=== PATIENT | male | born 1995 | race Hispanic/Latino ===

== ENCOUNTER 2017-04-15 18:24 | Emergency (ER) | payer OTHER ==
[2017-04-15 18:34] VITALS: BP 146/91; PULSE 94; RESP 18; TEMP 98.5; O2SAT 97
[2017-04-15] MEDS ORDERED: Lidocaine 1% Inj (20ml) ONE (18:41)
--- NOTE | 2017-04-15 19:20 | ED PDOC ---
Lower Extremity Pain/Injury Time Seen by Provider: 04/15/17 18:36 Chief Complaint (Nursing): Lower Extremity Problem/Injury Chief Complaint (Provider): Left knee laceration History Per: Patient Onset/Duration Of Symptoms: Mins (prior to arrival) Current Symptoms Are (Timing): Still Present Additional Complaint(s): Robin Lazo is a 21 year old male who presents to the emergency department for an evaluation after he fell on stairs and hit his left knee on metal portion of steps prior causing laceration prior to arrival. Denies any further medical complaints. Of note, vaccinations are up-to-date. PMD: none provided Past Medical History Reviewed: Historical Data, Nursing Documentation, Vital Signs Vital Signs: Last Vital Signs Temp 98.5 F 04/15/17 18:26 Pulse 94 H 04/15/17 18:26 Resp 18 04/15/17 18:26 BP 146/91 H 04/15/17 18:26 Pulse Ox 97 04/15/17 18:26 - Medical History PMH: No Chronic Diseases - Surgical History Surgical History: No Surg Hx - Family History Family History: States: No Known Family Hx - Social History Current smoker - smoking cessation education provided: No Alcohol: Occasional Drugs: Denies - Immunization History Hx Tetanus Toxoid Vaccination: Yes - Allergies Allergies/Adverse Reactions: Allergies Allergy/AdvReac Type Severity Reaction Status Date / Time No Known Allergies Allergy Verified 04/15/17 18:25 Review of Systems ROS Statement: Except As Marked, All Systems Reviewed And Found Negative Constitutional: Negative for: Other (further medical complaints) Skin: Positive for: Other (left knee laceration) Physical Exam - Reviewed Nursing Documentation Reviewed: Yes Vital Signs Reviewed: Yes - Physical Exam Appears: Positive for: Well, Non-toxic, No Acute Distress Skin: Positive for: Normal Color, Warm, Dry Neck: Positive for: Normal, Painless ROM Cardiovascular/Chest: Positive for: Regular Rate, Rhythm. Negative for: Murmur Respiratory: Positive for: Normal Breath Sounds. Negative for: Crackles, Rales , Rhonchi, Wheezing Gastrointestinal/Abdominal: Positive for: Normal Exam, Bowel Sounds, Soft Back: Positive for: Normal Inspection. Negative for: L CVA Tenderness, R CVA Tenderness Extremity: Positive for: Normal ROM, Deformity (left knee laceration with loose flaps exposing muscle layer). Negative for: Other (active bleeding) Neurologic/Psych: Positive for: Alert, Oriented - ECG O2 Sat by Pulse Oximetry: 97 (RA) Pulse Ox Interpretation: Normal Medical Decision Making Medical Decision Making: Initial Impression: Left knee laceration Initial Plan: * Laceration repair with 1% lidocaine without epinephrine * Wound care instructions * Follow up with PCP in 2 days Scribe Attestation: Documented by Aishwarya Yip, acting as a scribe for Chhaya Downing MD. Provider Scribe Attestation: All medical record entries made by the Scribe were at my direction and personally dictated by me. I have reviewed the chart and agree that the record accurately reflects my personal performance of the history, physical exam, medical decision making, and the department course for this patient. I have also personally directed, reviewed, and agree with the discharge instructions and disposition. Disposition - Clinical Impression Clinical Impression: Laceration - Patient ED Disposition Is Patient to be Admitted: No Doctor Will See Patient In The: Office Counseled Patient/Family Regarding: Diagnosis, Need For Followup - Disposition Disposition: Routine/Home Disposition Time: 09:15 Condition: STABLE Instructions: Care For Your Stitches (ED), Laceration (ED) Forms: [employer] (Italian) - POA Present On Arrival: Falls Or Trauma
== END 2017-04-15 19:17 | disposition home or self-care (01) ==
LOC: EDSEX 18:24 → H.ER 18:24
DX: S81.012A Laceration without foreign body, left knee, initial encounter (principal); W19.XXXA Unspecified fall, initial encounter; Y92.89 Other specified places as the place of occurrence of the external cause